=== PATIENT | female | born 1955 | race Caucasian/White ===

== ENCOUNTER 2016-09-15 11:11 | Emergency (ER) | payer BC, OTHER ==
[~2016-09-15] VITALS: Ht 152.4 cm; Wt 77.8 kg
[~2016-09-15 11:11] MED LIST: ALBU18002 INH; CETI10TA84 PO; ESOM1CAP24 PO; LEVO100T PO; MOME100A INH
[2016-09-15 11:18] VITALS: Ht 152.4 cm; Wt 77.8 kg
--- NOTE | 2016-09-15 12:06 | EMERGENCY ROOM VISIT NOTE ---
History Report prepared by Shannan: Neeru Tony Under the Supervision of: Dr. Ugo Connell M.D. First contact with patient: 11:46 Chief Complaint: CHEST PAIN Stated Complaint: CP, NUMBNESS IN LT ARM Nursing Triage Summary: Right knee pain x7 weeks "issues with right calf and pulling sensation in foot" Pt 4 days ago right knee swelled up "I have been tracking this sensation that there is something moving up my leg, then I felt something slipping in my groin then I felt something in my chest. I have been wondering for a while if there is a chance I have a blood clot" History of Present Illness The patient is a 60 year old female who presents to the Emergency Room with complaints of persistent chest pain that began today prior to arrival. She currently rates her discomfort as a 7/10 in severity. The patient states that today she developed left arm numbness, chest pain, and pain with breathing today. The patient notes a history of varicose veins, stating that she has had intermittent right knee, foot, and groin pain. She states that she has had difficulty walking due to her pain. The patient states that she has been worried about a blood clot. She additionally notes increased edema to her right knee. The patient states that her pain has been radiating up to her right groin. Yesterday, the patient states that she noticed slight neck pain. The patient denies any history of a blood clot. She notes that her last stress test was 5 years ago. Source of History: patient, spouse/significant other Onset: prior to arrival Position: chest Symptom Intensity: 7/10 Timing: other (persistent) Associated Symptoms: + neck pain Note: Associated Symptoms: right knee pain and swelling, chest pain with breathing Review of Systems See HPI for pertinent positives & negatives. A total of 10 systems reviewed and were otherwise negative. Past Medical & Surgical Medical Problems: (1) Allergic Rhinitis Nos (2) Asthma, Unspecified (3) Ext Hemorrhoid W/O Compl (4) Hypothyroidism Nos (5) Tinnitus (6) TMJ (temporomandibular joint disorder) Surgical Problems: (1) History of delivery Old medical records were reviewed. Nurse's notes were reviewed and I agree with. Family History FH: diabetes mellitus FH: hypertension FH: lung disease Social History Smoking Status: Never Smoker Alcohol Use: occasionally Marital Status: Housing Status: lives with family Occupation Status: employed Current/Historical Medications Scheduled Cetirizine (Zyrtec), 10 MG PO QAM Esomeprazole Magnesium (Nexium 24Hr), 40 MG PO QD Levothyroxine Sodium (Synthroid), 100 MCG PO DAILY Scheduled PRN Albuterol Sulfate (Proair Respiclick), 1 PUFF INH BID PRN for SOB/Wheezing Allergies Coded Allergies: Erythromycin (Unverified Allergy, Unknown, UNKNOWN, 09/15/16) Macrolides (Verified Allergy, Unknown, 09/15/16) Penicillins (Unverified Allergy, Unknown, Pt had Keflex in past without problem, 09/15/16) Sulfa Drugs (Verified Allergy, Unknown, 09/15/16) Physical Exam Vital Signs Date Time Temp Pulse Resp B/P Pulse Ox O2 Delivery O2 Flow Rate FiO2 09/15/16 16:50 36.6 68 18 141/99 98 09/15/16 16:48 68 18 141/99 98 Room Air 09/15/16 14:42 68 18 145/102 98 Room Air 09/15/16 12:43 68 18 153/92 96 Room Air 09/15/16 11:57 72 09/15/16 11:18 36.6 76 18 169/112 96 Room Air Physical Exam General: Well developed well nourished, non-ill appearing middle aged female, in no acute distress, breathing comfortably on room air. Normal speech HEENT: Normal cephalic atraumatic. Pupils are equal round and reactive to light. Extraocular movements are intact. Oropharynx is pink with moist mucous membranes. No swelling of the mouth lips or tongue. Neck: Supple with a midline trachea. No meningeal signs or stiffness, no JVD or bruits. No Stridor. Chest: Clear to auscultation bilaterally. No wheezes or rhonchi. No increased work of breathing. Heart: regular rate and rhythm. Abdomen: Soft nontender, nondistended without rebound guarding or rigidity. Extremities: The right leg has no redness, warmth, or significant swelling, no masses. No cyanosis clubbing or edema. No calf tenderness or assymetry Spine/Back. Non tender to palpation. No CVA tenderness Skin: Good turgor without rashes. Neurologic exam: Cranial nerves two through 12 are intact. Motor and sensation are intact and symmetrical throughout. Medical Decision & Procedures ER Provider Diagnostic Interpretation: Radiology results as stated below per my review and radiologist interpretation: CHEST ONE VIEW PORTABLE CLINICAL HISTORY: Atypical chest pain COMPARISON STUDY: 05/28/2014 FINDINGS: The cardiac and mediastinal contours are normal. There is no evidence of focal pulmonary consolidation. There is no evidence of failure. No pleural effusions are visualized.[ IMPRESSION: No active disease in the chest. Electronically signed by: Javy Maier M.D. 09/15/2016 12:29 PM Dictated Date/Time: 09/15/2016 12:28 PM ULTRASOUND RIGHT LOWER EXTREMITY VENOUS CLINICAL HISTORY: Right leg pain and swelling. COMPARISON STUDY: No priors. TECHNIQUE: Real-time, grayscale, and color Doppler sonography of the deep veins of the right lower extremity was performed from the inguinal crease to the calf. Compression and augmentation were utilized. FINDINGS: There is no sonographic evidence of deep venous thrombosis identified in the right lower extremity. The common femoral, superficial femoral, and popliteal veins are patent and normally compressible. The greater saphenous vein and the profunda femoris vein at the junction with the common femoral vein are clear. The visualized calf veins are patent. IMPRESSION: There is no sonographic evidence of deep venous thrombosis identified in the right lower extremity. Electronically signed by: Rehan Dillon M.D. 09/15/2016 1:42 PM Dictated Date/Time: 09/15/2016 1:42 PM RIGHT KNEE 2 VIEWS CLINICAL HISTORY: Right knee pain. FINDINGS: AP and crosstable lateral views of the right knee are obtained. No prior studies are available for comparison at the time of dictation. The skeletal structures are well mineralized. No fracture is seen. There is mild degenerative narrowing at the medial and patellofemoral articulations. There are small marginal osteophytes as well as mild degenerative beaking of the tibial spine. No joint effusion is seen. The overlying soft tissues are within normal limits. IMPRESSION: Minimal degenerative change as above. No acute bony abnormality is seen. Electronically signed by: Rehan Dillon M.D. 09/15/2016 12:31 PM Dictated Date/Time: 09/15/2016 12:[address] ANGIOGRAM OF THE CHEST CLINICAL HISTORY: Atypical chest pain. COMPARISON STUDY: Chest x-ray dated 09/15/2016. TECHNIQUE: Following the IV administration of 93 cc of Optiray 320, CT angiogram of the chest was performed from the upper abdomen to the thoracic inlet utilizing the pulmonary embolus protocol. Images are reviewed in the axial, sagittal, and coronal planes. 3-D MIPS images are created and assessed. IV contrast was administered without complication. CT DOSE: 356.33 mGy.cm FINDINGS: Thyroid: The thyroid gland is atrophic. Coarse calcifications are noted in the right lobe. Thoracic aorta: The thoracic aorta is normal in caliber and demonstrates standard 3-vessel arch anatomy. No dissection is seen. Pulmonary vasculature: The pulmonary trunk is normal in caliber. There are no filling defects identified in main, lobar, or segmental pulmonary branches to suggest pulmonary embolus. Heart: The heart is normal in size and configuration, and without pericardial effusion. Lungs and pleural spaces: The lungs and pleural spaces are clear. Mediastinum: There is no mediastinal lymphadenopathy. Clara: Clear. Axillae: There is no axillary lymphadenopathy. Upper abdomen: A 9 cm cyst is identified in the upper pole of the left kidney. A tiny hiatal hernia is observed. Skeletal structures: The skeletal structures are osteopenic. Mild degenerative change is noted throughout the thoracic spine. No lytic or blastic bony lesions are seen. IMPRESSION: 1. There is no evidence of pulmonary embolus in the main, lobar, or segmental pulmonary arteries. 2. The lungs are clear. Electronically signed by: Rehan Dillon M.D. 09/15/2016 4:23 PM Dictated Date/Time: 09/15/2016 4:09 PM Laboratory Results 09/15/16 11:30 Red Blood Count 5.15, Mean Corpuscular Volume 87.0, Mean Corpuscular Hemoglobin 28.7, Mean Corpuscular Hemoglobin Concent 33.0, Mean Platelet Volume 11.5, Neutrophils (%) (Auto) 66.0, Lymphocytes (%) (Auto) 22.4, Monocytes (%) (Auto) 7.5, Eosinophils (%) (Auto) 3.4, Basophils (%) (Auto) 0.5, Neutrophils # (Auto) 4.08, Lymphocytes # (Auto) 1.38, Monocytes # (Auto) 0.46, Eosinophils # (Auto) 0.21, Basophils # (Auto) 0.03 09/15/16 11:30 Test 09/15/16 11:30 09/15/16 11:57 09/15/16 12:05 White Blood Count 6.17 K/uL (4.8-10.8) Red Blood Count 5.15 M/uL (4.2-5.4) Hemoglobin 14.8 g/dL (12.0-16.0) Hematocrit 44.8 % (37-47) Mean Corpuscular Volume 87.0 fL (80-100) Mean Corpuscular Hemoglobin 28.7 pg (25-34) Mean Corpuscular Hemoglobin Concent 33.0 g/dl (32-36) Platelet Count 213 K/uL (130-400) Mean Platelet Volume 11.5 fL (7.4-10.4) Neutrophils (%) (Auto) 66.0 % Lymphocytes (%) (Auto) 22.4 % Monocytes (%) (Auto) 7.5 % Eosinophils (%) (Auto) 3.4 % Basophils (%) (Auto) 0.5 % Neutrophils # (Auto) 4.08 K/uL (1.4-6.5) Lymphocytes # (Auto) 1.38 K/uL (1.2-3.4) Monocytes # (Auto) 0.46 K/uL (0.11-0.59) Eosinophils # (Auto) 0.21 K/uL (0-0.5) Basophils # (Auto) 0.03 K/uL (0-0.2) RDW Standard Deviation 39.3 fL (36.4-46.3) RDW Coefficient of Variation 12.3 % (11.5-14.5) Immature Granulocyte % (Auto) 0.2 % Immature Granulocyte # (Auto) 0.01 K/uL (0.00-0.02) Anion Gap 8.0 mmol/L (3-11) Est Creatinine Clear Calc Drug Dose 58.9 ml/min Estimated GFR () 75.6 Estimated GFR (Non- 65.2 BUN/Creatinine Ratio 19.9 (10-20) Calcium Level 8.9 mg/dl (8.5-10.1) Total Bilirubin 0.5 mg/dl (0.2-1) Direct Bilirubin 0.1 mg/dl (0-0.2) Aspartate Amino Transf (AST/SGOT) 17 U/L (15-37) Alanine Aminotransferase (ALT/SGPT) 20 U/L (12-78) Alkaline Phosphatase 78 U/L (45-117) Total Creatine Kinase 27 U/L (26-192) Creatine Kinase MB 0.7 ng/ml (0.5-3.6) Total Protein 7.9 gm/dl (6.4-8.2) Albumin 4.0 gm/dl (3.4-5.0) Lipase 132 U/L (73-393) Creatine Kinase MB Ratio (0-3.0) Bedside D-Dimer > 450 ng/mlFEU (0-450) Bedside Troponin I 0.030 ng/ml (0-0.045) Laboratory studies as stated above per my review. ECG Indication: chest pain Rate (beats per minute): 78 Rhythm: normal sinus Findings: no acute ischemic change, no ectopy Comparison ECG Date: 06/07/13 Change: no significant change ED Course 1148: Past medical records reviewed. The patient was evaluated in room A11B, and a complete history and physical examination were performed. 1518: I reevaluated the patient and she is resting comfortably. She is going to have a CT scan. 1619: I reevaluated the patient and she is resting comfortably. I discussed all the exam findings with her and I discussed the treatment plan. She verbalized complete understanding and agreement. She is ready to go home. Medical Decision Differentials include, but are not limited to; PE, acute coronary syndrome, arrhythmia, DVT, infection, electrolyte or metabolic abnormality. This patient comes in as described above. She was placed in room A 11. She is here for treatment and evaluation of right knee pain. She also had a brief episode of chest pain twice that lasted only a second or 2. Her symptoms are were would be atypical for cardiac disease or PE. IV access was established EKG and multiple blood testing was obtained. Chest x-ray and knee x-ray were obtained as well. She has nothing to suggest acute coronary syndrome or arrhythmia. She's had no significant electrolyte or metabolic abnormalities. Ultrasound of her right leg was unremarkable. She has no evidence of DVT. Her d-dimer was elevated and in light of this, I did do a chest CT and there is no evidence of PE. There is an incidental finding of a left renal cyst that is partially imaged. I told the patient she should follow up with her regular doctor for this. She's remained stable looks well. I do not think is likely a cardiac event. I do think she should have close follow-up with her doctor and in fact has an appointment scheduled tomorrow. She should return if: increasing pain, worsening of symptoms, fever or chills, any new problems or concerns. Impression Primary Impression: Precordial chest pain Additional Impressions: Right knee pain Renal cyst, left Scribe Attestation The scribe's documentation has been prepared under my direction and personally reviewed by me in its entirety. I confirm that the note above accurately reflects all work, treatment, procedures, and medical decision making performed by me. Departure Information Dispostion Home / Self-Care Referrals Giovani Orozco M.D. (PCP) Forms HOME CARE DOCUMENTATION FORM, IMPORTANT VISIT INFORMATION Patient Instructions [facility] Additional Instructions Rest Drink plenty of fluids Return if: worsening of symptoms, increasing pain, shortness of breath, any new problems or concerns Follow-up with your doctor in 1-2 days for recheck Problem Qualifiers
[2016-09-15 12:11] LABS: BASO % 0.5 %; BASO ABS # 0.03 K/uL (0-0.2); COMPLETE YES; EOS % 3.4 %; HEMATOCRIT 44.8 % (37-47); IG% 0.2 %; LYMPH % 22.4 %; LYMPH ABS # 1.38 K/uL (1.2-3.4); MEAN CORPUSCULAR HEMOGLOBIN 28.7 pg (25-34); MEAN PLATELET VOLUME 11.5 fL (7.4-10.4); MONO % 7.5 %; PLATELET COUNT 213 K/uL (130-400); RED BLOOD COUNT 5.15 M/uL (4.2-5.4); WHITE BLOOD COUNT 6.17 K/uL (4.8-10.8)
[2016-09-15 12:22] LABS: BUN/CREATININE RATIO 19.9 (10-20); CALCIUM 8.9 mg/dl (8.5-10.1); CREATININE 0.96 mg/dl (0.60-1.20); POTASSIUM 3.8 mmol/L (3.5-5.1)
[2016-09-15 12:27] LABS: CKMB/CK RATIO 2.6 (0-3.0)
--- NOTE | 2016-09-15 12:31 | DIAGNOSTIC IMAGING REPORT ---
CHEST ONE VIEW PORTABLE CLINICAL HISTORY: Atypical chest pain COMPARISON STUDY: 05/28/2014 FINDINGS: The cardiac and mediastinal contours are normal. There is no evidence of focal pulmonary consolidation. There is no evidence of failure. No pleural effusions are visualized.[ IMPRESSION: No active disease in the chest. Electronically signed by: Javy Maier M.D. 09/15/2016 12:29 PM Dictated Date/Time: 09/15/2016 12:28 PM
--- NOTE | 2016-09-15 12:33 | DIAGNOSTIC IMAGING REPORT ---
RIGHT KNEE 2 VIEWS CLINICAL HISTORY: Right knee pain. FINDINGS: AP and crosstable lateral views of the right knee are obtained. No prior studies are available for comparison at the time of dictation. The skeletal structures are well mineralized. No fracture is seen. There is mild degenerative narrowing at the medial and patellofemoral articulations. There are small marginal osteophytes as well as mild degenerative beaking of the tibial spine. No joint effusion is seen. The overlying soft tissues are within normal limits. IMPRESSION: Minimal degenerative change as above. No acute bony abnormality is seen. Electronically signed by: Rehan Dillon M.D. 09/15/2016 12:31 PM Dictated Date/Time: 09/15/2016 12:30 PM
--- NOTE | 2016-09-15 13:44 | DIAGNOSTIC IMAGING REPORT ---
ULTRASOUND RIGHT LOWER EXTREMITY VENOUS CLINICAL HISTORY: Right leg pain and swelling. COMPARISON STUDY: No priors. TECHNIQUE: Real-time, grayscale, and color Doppler sonography of the deep veins of the right lower extremity was performed from the inguinal crease to the calf. Compression and augmentation were utilized. FINDINGS: There is no sonographic evidence of deep venous thrombosis identified in the right lower extremity. The common femoral, superficial femoral, and popliteal veins are patent and normally compressible. The greater saphenous vein and the profunda femoris vein at the junction with the common femoral vein are clear. The visualized calf veins are patent. IMPRESSION: There is no sonographic evidence of deep venous thrombosis identified in the right lower extremity. Electronically signed by: Rehan Dillon M.D. 09/15/2016 1:42 PM Dictated Date/Time: 09/15/2016 1:42 PM
[2016-09-15] MEDS ORDERED: OPTIRAY 320 IV PRN (15:30)
--- NOTE | 2016-09-15 16:25 | DIAGNOSTIC IMAGING REPORT ---
CT ANGIOGRAM OF THE CHEST CLINICAL HISTORY: Atypical chest pain. COMPARISON STUDY: Chest x-ray dated 09/15/2016. TECHNIQUE: Following the IV administration of 93 cc of Optiray 320, CT angiogram of the chest was performed from the upper abdomen to the thoracic inlet utilizing the pulmonary embolus protocol. Images are reviewed in the axial, sagittal, and coronal planes. 3-D MIPS images are created and assessed. IV contrast was administered without complication. CT DOSE: 356.33 mGy.cm FINDINGS: Thyroid: The thyroid gland is atrophic. Coarse calcifications are noted in the right lobe. Thoracic aorta: The thoracic aorta is normal in caliber and demonstrates standard 3-vessel arch anatomy. No dissection is seen. Pulmonary vasculature: The pulmonary trunk is normal in caliber. There are no filling defects identified in main, lobar, or segmental pulmonary branches to suggest pulmonary embolus. Heart: The heart is normal in size and configuration, and without pericardial effusion. Lungs and pleural spaces: The lungs and pleural spaces are clear. Mediastinum: There is no mediastinal lymphadenopathy. Clara: Clear. Axillae: There is no axillary lymphadenopathy. Upper abdomen: A 9 cm cyst is identified in the upper pole of the left kidney. A tiny hiatal hernia is observed. Skeletal structures: The skeletal structures are osteopenic. Mild degenerative change is noted throughout the thoracic spine. No lytic or blastic bony lesions are seen. IMPRESSION: 1. There is no evidence of pulmonary embolus in the main, lobar, or segmental pulmonary arteries. 2. The lungs are clear. Electronically signed by: Rehan Dillon M.D. 09/15/2016 4:23 PM Dictated Date/Time: 09/15/2016 4:09 PM
[2016-09-15 16:50] VITALS: BP 141/99; PULSE 68; TEMP 36.6; O2SAT 98
== END 2016-09-15 16:54 | disposition home or self-care (01) ==
LOC: C.EDB 11:13 → C.EDA 16:54
DX: R07.2 Precordial pain (principal); M25.561 Pain in right knee; N28.1 Cyst of kidney, acquired; J45.909 Unspecified asthma, uncomplicated; E03.9 Hypothyroidism, unspecified; Z83.3 Family history of diabetes mellitus; Z82.49 Family history of ischemic heart disease and other diseases of the circulatory system; Z79.899 Other long term (current) drug therapy

== ENCOUNTER → 2016-12-13 | Outpatient (CLI) | payer BC ==
[~2016-12-13] MED LIST changes: -MOME100A INH; +OPTIRAY 320 IV PRN
--- NOTE | 2016-12-13 16:47 | DIAGNOSTIC IMAGING REPORT ---
CT OF THE ABDOMEN WITH AND WITHOUT CONTRAST RENAL PROTOCOL CLINICAL HISTORY: Left renal cyst. COMPARISON STUDY: Chest CT September 15, 2016. TECHNIQUE: Unenhanced, nephrographic and 5 minute delayed phase imaging of the abdomen was performed. Injection of 119 cc Optiray 320 IV was uneventful. FINDINGS: Note is made of an 8.8 cm water attenuation lesion which arises from the upper pole of the left kidney. This corresponds to the lesion shown on chest CT of September 15, 2016. This has no solid component. This is consistent with a cyst. In addition, note is made of a 3.2 cm water attenuation lesion within the upper aspect of the right renal pelvis consistent with a cyst. No solid renal lesion is present. There is no hydronephrosis. No upper tract urothelial lesions are identified. There is a gallstone within the gallbladder. The liver, spleen, adrenal glands and pancreas are normal. There is no abdominal lymphadenopathy. Caliber and wall thickness of visualized small and large bowel are normal. IMPRESSION: 1. 8.8 cm left renal cyst. No solid component. 2. 3.2 cm right renal cyst. 3. Cholelithiasis. Electronically signed by: Yuriy Carias M.D. 12/13/2016 4:46 PM Dictated Date/Time: 12/13/2016 4:31 PM
== END | disposition home or self-care (01) ==
LOC: C.CTS 16:01
PROVIDERS: ATTEND Urology
DX: N28.1 Cyst of kidney, acquired (principal); K80.20 Calculus of gallbladder without cholecystitis without obstruction

== ENCOUNTER → 2017-03-28 | Outpatient (CLI) | payer BC ==
[~2017-03-28] MED LIST changes: -OPTIRAY 320 IV PRN
--- NOTE | 2017-03-28 13:01 | DIAGNOSTIC IMAGING REPORT ---
(BARIUM SWALLOW) ESOPHAGUS CLINICAL HISTORY: 61 years-old Female with R13.10 [id number] Lump in [id number]. Chronic dysphasia TECHNIQUE: Barium contrast and effervescent crystals were administered to the patient under fluoroscopic examination. Multiple images were obtained and submitted for review. FLUOROSCOPY TIME: 1.6 minutes COMPARISON: CT 12/13/2016. FINDINGS: During deglutition, contrast material flowed freely through the cervical esophagus. No filling defect or mucosal abnormality is identified. No abnormal stricturing or mass effect is seen. The mid to distal esophagus is well coated and distended. No abnormal stricturing or mucosal abnormality is identified. No large hiatal hernia was demonstrated during the exam. The GE junction is normal in appearance. Extensive gastroesophageal reflux was noted extending to level the lower cervical esophagus. Mild tertiary contractions of the distal esophagus noted. Impression: 1. Extensive gastroesophageal reflux extends to the level of the lower cervical esophagus. 2. Mild esophageal dysmotility with some tertiary contractions of the distal esophagus. The above report was generated using voice recognition software. It may contain grammatical, syntax or spelling errors. Electronically signed by: Ryan Bill M.D. 03/28/2017 10:45 AM Dictated Date/Time: 03/28/2017 10:42 AM
== END | disposition home or self-care (01) ==
LOC: C.RAD 10:03
PROVIDERS: ATTEND Neuromusculoskeletal Medicine & OMM
DX: R22.1 Localized swelling, mass and lump, neck (principal); R13.10 Dysphagia, unspecified; K21.9 Gastro-esophageal reflux disease without esophagitis

== ENCOUNTER → 2017-04-28 | Outpatient (CLI) | payer BC | END | disposition home or self-care (01) | LOC: C.PAPS 09:27 | PROVIDERS: ATTEND Nurse Practitioner Adult Health | DX: Z00.00 Encounter for general adult medical examination without abnormal findings (principal); Z01.419 Encounter for gynecological examination (general) (routine) without abnormal findings ==

== ENCOUNTER → 2017-04-29 | Outpatient (CLI) | payer BC ==
[2017-04-29 13:32] LABS: BASO % 0.5 %; BASO ABS # 0.03 K/uL (0-0.2); COMPLETE YES; EOS % 5.3 %; HEMATOCRIT 40.9 % (37-47); IG% 0.2 %; LYMPH % 25.3 %; LYMPH ABS # 1.43 K/uL (1.2-3.4); MEAN CELL VOLUME 87.6 fL (80-100); MEAN CORPUSCULAR HEMOGLOBIN 30.2 pg (25-34); MEAN CORPUSCULAR HGB CONC 34.5 g/dl (32-36); MEAN PLATELET VOLUME 11.9 fL (7.4-10.4); MONO % 7.6 %; NEUT % 61.1 %; PLATELET COUNT 203 K/uL (130-400); RED BLOOD COUNT 4.67 M/uL (4.2-5.4); WHITE BLOOD COUNT 5.66 K/uL (4.8-10.8)
[2017-04-29 14:04] LABS: ALT/SGPT 23 U/L (12-78); AST/SGOT 16 U/L (15-37); BLOOD UREA NITROGEN 24 mg/dl (7-18); BUN/CREATININE RATIO 21.6 (10-20); CALCIUM 8.7 mg/dl (8.5-10.1); CARBON DIOXIDE 25 mmol/L (21-32); CHLORIDE 108 mmol/L (98-107); CREATININE 1.12 mg/dl (0.60-1.20); GLUCOSE 84 mg/dl (70-99); SODIUM 140 mmol/L (136-145)
[2017-04-29 14:15] LABS: ALB/GLOB RATIO 1.1 (0.9-2); ALKALINE PHOSPHATASE 71 U/L (45-117); CHOLESTEROL 194 mg/dl (0-200); CHOLESTEROL/HDL RATIO 2.9; HDL CHOLESTEROL 67 mg/dl; LDL CHOLESTEROL CALCULATED 102 mg/dl; THYROID STIMULATING HORMONE 0.854 uIu/ml (0.300-4.500); TRIGLYCERIDES 127 mg/dl (0-150); VERY LOW DENSITY LIPOPROT CALC 25 mg/dl
[2017-04-30 06:47] LABS: ESTIMATED AVERAGE GLUCOSE 108 mg/dl; HA1C FLAG Normal (Normal)
== END | disposition home or self-care (01) ==
LOC: C.LABBC 11:42
PROVIDERS: ATTEND Family Medicine
DX: Z00.00 Encounter for general adult medical examination without abnormal findings (principal); Z11.59 Encounter for screening for other viral diseases; E03.9 Hypothyroidism, unspecified; E78.5 Hyperlipidemia, unspecified

== ENCOUNTER → 2017-05-10 | Outpatient (CLI) | payer BC ==
--- NOTE | 2017-05-11 15:59 | MAMMOGRAPHY REPORT ---
BILATERAL DIGITAL SCREENING MAMMOGRAM TOMOSYNTHESIS WITH CAD: 05/10/2017 CLINICAL HISTORY: Routine screening. TECHNIQUE: Breast tomosynthesis in addition to standard 2D mammography was performed. Current study was also evaluated with a Computer Aided Detection (CAD) system. COMPARISON: Comparison is made to exam dated: 10/24/2002 mammogram. BREAST COMPOSITION: There are scattered areas of fibroglandular density in both breasts. Involution al changes comparing to the prior available 2002 mammograms. FINDINGS: No suspicious mass, architectural distortion or cluster of suspicious microcalcifications is seen. IMPRESSION: ACR BI-RADS CATEGORY 1: NEGATIVE There is no mammographic evidence of malignancy. A 1 year screening mammogram is recommended. The pa tient will receive written notification of the results. Approximately 10% of breast cancers are not detected with mammography. A negative mammographic report should not delay biopsy if a clinically suggestive mass is present. Kathy Hou M.D. ay/:05/10/2017 15:12:01 [employer] Director: Megan Fraser, [facility] letter sent: Normal 1/2 BI-RADS Code: ACR BI-RADS Category 1: Negative
== END | disposition home or self-care (01) ==
LOC: C.MAMM 14:38
PROVIDERS: ATTEND Physician Assistant Medical
DX: Z12.31 Encounter for screening mammogram for malignant neoplasm of breast (principal)

== ENCOUNTER → 2017-08-04 | Outpatient (CLI) | payer BC | END | disposition home or self-care (01) | LOC: C.LABSPEC 17:45 | PROVIDERS: ATTEND Nurse Practitioner Family | DX: R39.9 Unspecified symptoms and signs involving the genitourinary system (principal) ==

== ENCOUNTER → 2017-12-21 | Outpatient (CLI) | payer BC ==
[~2017-12-21] MED LIST changes: +ADVIN50/60 INH; +CALC500C3 PO; -ESOM1CAP24 PO; +IBUP-103 PO; +PANT40TA PO
--- NOTE | 2017-12-21 09:17 | DIAGNOSTIC IMAGING REPORT ---
CHEST 2 VIEWS ROUTINE CLINICAL HISTORY: Preoperative chest COMPARISON STUDY: 09/15/2016 FINDINGS: The cardiac and mediastinal contours are normal. There is no evidence of focal pulmonary consolidation. There is no evidence of failure. No pleural effusions are visualized.[ IMPRESSION: No active disease in the chest. Electronically signed by: Javy Maier M.D. 12/21/2017 9:16 AM Dictated Date/Time: 12/21/2017 9:15 AM
[2017-12-21 09:31] LABS: BASO % 0.5 %; BASO ABS # 0.03 K/uL (0-0.2); EOS ABS # 0.17 K/uL (0-0.5); HEMOGLOBIN 14.2 g/dL (12.0-16.0); IG# 0.01 K/uL (0.00-0.02); LYMPH % 21.1 %; LYMPH ABS # 1.21 K/uL (1.2-3.4); MEAN CELL VOLUME 88.1 fL (80-100); MEAN CORPUSCULAR HEMOGLOBIN 29.8 pg (25-34); MEAN CORPUSCULAR HGB CONC 33.8 g/dl (32-36); MEAN PLATELET VOLUME 11.6 fL (7.4-10.4); MONO % 7.8 %; MONO ABS # 0.45 K/uL (0.11-0.59); NEUT % 67.4 %; NEUT ABS # 3.87 K/uL (1.4-6.5); PLATELET COUNT 182 K/uL (130-400); RED CELL DISTRIBUTION WIDTH CV 12.5 % (11.5-14.5); RED CELL DISTRIBUTION WIDTH SD 39.9 fL (36.4-46.3); WHITE BLOOD COUNT 5.74 K/uL (4.8-10.8)
[2017-12-21 13:45] LABS: BLOOD UREA NITROGEN 22 mg/dl (7-18); CALCIUM 8.6 mg/dl (8.5-10.1); CARBON DIOXIDE 26 mmol/L (21-32); CREATININE 1.12 mg/dl (0.60-1.20); GLUCOSE 93 mg/dl (70-99); POTASSIUM 4.1 mmol/L (3.5-5.1); SODIUM 139 mmol/L (136-145)
== END | disposition home or self-care (01) ==
LOC: C.CPL 08:06
PROVIDERS: ATTEND Urology
DX: Z01.810 Encounter for preprocedural cardiovascular examination (principal); Z01.811 Encounter for preprocedural respiratory examination; Z01.812 Encounter for preprocedural laboratory examination

== ENCOUNTER 2018-01-03 08:33 | Inpatient (IN) | payer BC ==
[2017-12-19 08:01] VITALS: BMI 34.0
--- NOTE | 2017-12-20 16:09 | PAT Medication Instructions ---
Service Date Dec 20, 2017. Current Home Medication List Albuterol Sulfate (Proair Respiclick), 1 PUFF INH BID PRN for SOB/Wheezing Calcium Carbonate (Tums), 1 DOSE PO QD PRN for Heartburn Cetirizine (Zyrtec), 10 MG PO QAM Fluticasone Prop/Salmeterol (Advair Diskus 500/50 60 Dose), 1 PUFFS INH BID PRN for SOB/Wheezing Ibuprofen Tab (Advil), 400 MG PO QD PRN for Pain Levothyroxine Sodium (Synthroid), 100 MCG PO QAM Pantoprazole (Protonix), 40 MG PO QAM Medication Instructions For Your Scheduled Surgery - Check with surgeon for instructions: Ibuprofen Tab (Advil), 400 MG PO QD PRN for Pain - Hold the following medications the morning of surgery: Calcium Carbonate (Tums), 1 DOSE PO QD PRN for Heartburn Cetirizine (Zyrtec), 10 MG PO QAM - Take the following medications the morning of surgery with a sip of water: Albuterol Sulfate (Proair Respiclick), 1 PUFF INH BID PRN for SOB/Wheezing (if needed) Fluticasone Prop/Salmeterol (Advair Diskus 500/50 60 Dose), 1 PUFFS INH BID PRN for SOB/Wheezing (if needed) Levothyroxine Sodium (Synthroid), 100 MCG PO QAM Pantoprazole (Protonix), 40 MG PO QAM - Take the following medications as scheduled the night before surgery: Calcium Carbonate (Tums), 1 DOSE PO QD PRN for Heartburn (if needed) Fluticasone Prop/Salmeterol (Advair Diskus 500/50 60 Dose), 1 PUFFS INH BID PRN for SOB/Wheezing (if needed) Albuterol Sulfate (Proair Respiclick), 1 PUFF INH BID PRN for SOB/Wheezing (if needed) If you have any questions please call us at [phone] or [phone] or [phone]
[2017-12-21 08:12] VITALS: Ht 149.9 cm; Wt 79.1 kg
[~2018-01-03] VITALS: Ht 149.9 cm; Wt 79.1 kg
[2018-01-03] VITALS (9 sets, daily range): BP systolic 101–143; BP diastolic 63–86; PULSE 53–90; TEMP 36.4–36.8; O2SAT 95–100
[~2018-01-03 08:33] MED LIST changes: +CEFAZOLIN 2000MG IV PUSH 15 ML IV SCH; +LACTATED RINGER'S 1000ML 1,000 ML IV SCH
[2018-01-03] MEDS ORDERED: PHENYLEPHRINE 100MCG/ML 5ML SYR IV PRN (09:15)
[2018-01-03] MEDS ORDERED: ONDANSETRON INJ 2 MG/ML 2 ML VIAL IV PRN ×2 (09:15→12:00)
[2018-01-03] MEDS ORDERED: ATROPINE SULFATE 0.1 MG/ML 5ML SYR IV PRN (09:15)
[2018-01-03] MEDS ORDERED: HYDROmorphone INJ 2 MG/ML SYR/VIAL IV PRN (09:15)
[2018-01-03] MEDS ORDERED: EpHEDrine SULFATE INJ 50 MG/ML AMP IV PRN (09:15)
--- NOTE | 2018-01-03 10:04 | History & Physical Bridge Note ---
H&P Re-Evaluation Bridge Note: I have examined the patient, reviewed the History & Physical and in the interval since the performance of the History & Physical I have noted the following changes of clinical significance: No changes noted
[2018-01-03] MEDS ORDERED: BUPIVACAINE 0.5 % 5 MG/1 ML PF 10ML VIAL ONE (10:22)
[2018-01-03] MEDS ORDERED: PROPOFOL IV EMULSION 10 MG/ML 20 ML VIAL ONE (10:33)
[2018-01-03] MEDS ORDERED: LIDOCAINE HCL 2% 2 ML VIAL (20MG/ML) ONE (10:33)
[2018-01-03] MEDS ORDERED: ROCURONIUM BROMIDE 10 MG/ML 5 ML VIAL ONE (10:33)
[2018-01-03] MEDS ORDERED: FENTANYL CITRATE INJ 50 MCG/1 ML 2 ML VIAL ONE (10:34)
[2018-01-03] MEDS ORDERED: MIDAZOLAM HCL 1 MG/ML 2ML VIAL ONE (10:34)
[2018-01-03] MEDS ORDERED: ONDANSETRON INJ 2 MG/ML 2 ML VIAL ONE (11:33)
[2018-01-03] MEDS ORDERED: DEXAMETHASONE SOD INJ 4 MG/ML VIAL ONE (11:33)
[2018-01-03] MEDS ORDERED: GLYCOPYRROLATE INJ 0.2 MG/ML VIAL ONE (11:46)
[2018-01-03] MEDS ORDERED: NEOSTIGMINE METHYLSULFATE 5 MG/5 ML SYR ONE (11:46)
[2018-01-03] MEDS ORDERED: ACETAMINOPHEN/CODEINE 300/30MG TAB PO PRN (12:00)
[2018-01-03] MEDS ORDERED: CALCIUM CARBONATE 500 MG CHEWABLE PO PRN (12:00)
[2018-01-03] MEDS ORDERED: FLUTICASONE/SALMETEROL (ADVAIR) 500/50 INH 14 PUFF INH PRN (12:00)
[2018-01-03] MEDS ORDERED: ALBUTEROL HFA INHALER 8.5 GM INH PRN (12:00)
[2018-01-03] MEDS ORDERED: MoRPHine SULFATE 4 MG/ML 1 ML CARP\\VIAL IV PRN (12:00)
[2018-01-03] MEDS ORDERED: ACETAMINOPHEN 325 MG TAB PO PRN (12:00)
--- NOTE | 2018-01-03 12:08 | [facility] Post Operative Brief Note ---
Immediate Operative Summary Operative Date Jan 03, 2018. Pre-Operative Diagnosis Left renal cyst Post-Operative Diagnosis Left renal cyst Procedure(s) Performed Left laparoscopic renal cyst decortication Surgeon Dr. Oliver Hou MD Record Clerk Surgeon(s) MAIK Esquivel Estimated Blood Loss 5ml Findings Consistent with Post-Op Diagnosis Specimens A. Left renal cyst Anesthesia Type General Complication(s) none Disposition Accompanied Pt To Recover: yes Disposition: Recovery Room / PACU
[2018-01-03] MEDS ORDERED: HYDROmorphone INJ 1 MG/ML SYR ONE (12:17)
[2018-01-03 12:39] LABS: BASO % 0.5 %; BASO ABS # 0.03 K/uL (0-0.2); EOS ABS # 0.12 K/uL (0-0.5); HEMATOCRIT 42.9 % (37-47); HEMOGLOBIN 14.3 g/dL (12.0-16.0); IG# 0.01 K/uL (0.00-0.02); LYMPH % 24.5 %; LYMPH ABS # 1.45 K/uL (1.2-3.4); MEAN CELL VOLUME 89.4 fL (80-100); MEAN CORPUSCULAR HEMOGLOBIN 29.8 pg (25-34); MEAN PLATELET VOLUME 11.6 fL (7.4-10.4); MONO % 5.4 %; MONO ABS # 0.32 K/uL (0.11-0.59); NEUT % 67.4 %; PLATELET COUNT 172 K/uL (130-400); RED CELL DISTRIBUTION WIDTH CV 12.6 % (11.5-14.5); RED CELL DISTRIBUTION WIDTH SD 40.8 fL (36.4-46.3); WHITE BLOOD COUNT 5.93 K/uL (4.8-10.8)
[2018-01-03 12:44] LABS: MEAN CORPUSCULAR HGB CONC 33.3 g/dl (32-36)
[2018-01-03] MEDS ORDERED: NURSING VERBAL MED ORDER ONE (13:00)
[2018-01-03] MEDS ORDERED: ALBUT/IPRATROP 3MG/0.5MG NEB 3 ML VIAL INH ONE (13:00)
[2018-01-03 13:13] LABS: CALCIUM 8.8 mg/dl (8.5-10.1); CREATININE 1.13 mg/dl (0.60-1.20); POTASSIUM 3.7 mmol/L (3.5-5.1)
--- NOTE | 2018-01-03 13:15 | Anesthesiology Progress Note ---
Anesthesia Post Op Note Date & Time Jan 03, 2018 at 13:14 Vital Signs Pain Intensity: 4 Vital Signs Past 12 Hours Date Time Temp Pulse Resp B/P (MAP) Pulse Ox O2 Delivery O2 Flow Rate FiO2 01/03/18 13:09 36.1 100 Nasal Cannula 2 01/03/18 13:04 53 16 100 Nasal Cannula 2.0 01/03/18 13:01 135/70 01/03/18 12:58 53 16 01/03/18 12:58 52 16 100 01/03/18 12:56 130/88 01/03/18 12:53 52 16 97 01/03/18 12:53 54 16 01/03/18 12:51 140/69 01/03/18 12:48 53 16 01/03/18 12:48 51 16 100 01/03/18 12:47 53 14 01/03/18 12:47 53 14 99 01/03/18 12:46 131/75 01/03/18 12:42 65 16 141/78 100 01/03/18 12:42 65 16 01/03/18 12:37 52 13 01/03/18 12:37 53 13 100 01/03/18 12:36 144/69 01/03/18 12:32 54 12 100 01/03/18 12:32 53 12 01/03/18 12:31 156/80 01/03/18 12:27 53 12 100 01/03/18 12:27 52 12 01/03/18 12:26 144/88 01/03/18 12:25 62 17 01/03/18 12:25 63 17 99 01/03/18 12:21 148/79 01/03/18 12:20 65 20 99 01/03/18 12:20 65 20 01/03/18 12:15 66 16 162/92 98 01/03/18 12:15 66 16 01/03/18 12:15 36.7 62 18 163/92 100 Oxymask 10 01/03/18 09:00 36.8 73 18 143/86 (105) 97 Room Air Notes Mental Status: alert / awake / arousable, participated in evaluation Pt Amnestic to Procedure: Yes Nausea / Vomiting: adequately controlled Pain: adequately controlled Airway Patency, RR, SpO2: stable & adequate BP & HR: stable & adequate Hydration State: stable & adequate Anesthetic Complications: no major complications apparent
[2018-01-03] MEDS: LACTATED RINGER'S 1000ML 1,000 ML IV SCH ×3 (13:40→21:51)
--- NOTE | 2018-01-03 13:56 | [facility] Operative Report ---
Operative Report Operative Date Jan 03, 2018. Pre-Operative Diagnosis Left renal cyst Post-Operative Diagnosis Left renal cyst Procedure(s) Performed Left laparoscopic renal cyst decortication Surgeon Dr. Oliver Hou MD Quality Assurance Lab Technician Surgeon(s) MAIK Esquivel Estimated Blood Loss 5ml Specimens A. Left renal cyst Anesthesia Type General Complication(s) none Disposition yes Recovery Room / PACU Description of Procedure Patient was identified in the preoperative holding area, appropriate informed consents reviewed and completed and she was transported to the operating suite. Upon arrival she received appropriate preoperative antibiotics in the form of Ancef. Adequate general anesthesia was achieved, she is placed in a right-side- down left side up lateral decubitus position where she was positioned, padded and braced in standard lazy lateral fashion with the bed flexed. Following appropriate sterile prep and drape, I began the case by passing a Veress needle under the costal margin in the left upper quadrant. Insufflated the abdomen to 15 mmHg for marking 3 potential port sites were 5 mm ports. The first port was located approximately 2 fingerbreadths below the costal margin along the lateral border of the rectus muscle, the second port was 8 cm inferior to this and the third port was approximately 4 cm inferior and 4 cm lateral to the second port. I began by placing the middle of those ports utilizing 5 mm Visiport and 5 mm 0 lens. Inspection of the abdomen after entry revealed mild adhesions on the anterior surface of the abdominal wall near the upper planned port site, I was able to lyse these adhesions without difficulty using the harmonic scalpel. The other port sites were free of adhesions and healthy. After completely clearing the abdominal wall of the adhesions, the final port was placed. Of note, the size of the cyst is already medialize the colon, therefore had to simply mobilize the spleen further cephalad by dissecting between the kidney and the spleen, that I had to split Gerota's fascia to expose the underlying renal parenchyma as well as cyst surface. I was able to accomplish this utilizing a grasper and Harmonic scalpel. After entirely exposing the surface of the cyst, I incised it utilizing the harmonic scalpel and drained it with a suction. Fluid within the cyst was clear, inspection of the inner aspect of the cyst revealed no masses or other lesions of concern. The now collapsed and redundant cyst wall was excised adjacent to its junction with her healthy appearing renal parenchyma utilizing the harmonic scalpel. After further inspection and confirmation of hemostasis, I placed some of the perirenal fat into the defect. At that time there was excellent hemostasis and no other concerns, I was able to withdraw the cyst wall will simultaneously withdrawing the lowest 5 mm port. The cyst wall was passed off the table as a specimen. The other ports were then withdrawn. Fascia was reapproximated with a single simple interrupted 0 Vicryl followed by closure of the skin with 4-0 Monocryl. All incisions were infiltrated with quarter percent Marcaine. They were closed with Dermabond as a dressing. Of note, Tammi Gonzalez was with me as an educational assistant teacher from incision to closure as well as all important portions of the case. I attest to the content of the Intraoperative Record and any orders documented therein. Any exceptions are noted below.
[2018-01-03] MEDS: CEFAZOLIN IV 1,000 MG in SYRINGE 0 ML IV SCH (18:43)
[2018-01-03] MEDS: HEPARIN SOD 5000 UNIT/0.5 ML CARP SQ SCH (20:34)
[2018-01-03] MEDS: ACETAMINOPHEN/CODEINE 300/30MG TAB PO PRN (20:36)
[2018-01-03] MEDS: DOCUSATE SODIUM 100 MG CAP PO SCH (20:37)
[2018-01-04 03:05] VITALS: BP 107/59; PULSE 71; TEMP 37; O2SAT 96
[2018-01-04] MEDS: CEFAZOLIN IV 1,000 MG in SYRINGE 0 ML IV SCH (03:34)
[2018-01-04] MEDS: ACETAMINOPHEN/CODEINE 300/30MG TAB PO PRN (03:35)
[2018-01-04] MEDS: LACTATED RINGER'S 1000ML 1,000 ML IV SCH ×2 (03:42→09:40)
[2018-01-04] MEDS ORDERED: LEVOTHYROXINE 100 MCG TAB PO SCH (06:00)
[2018-01-04 06:30] LABS: HEMATOCRIT 40.6 % (37-47); HEMOGLOBIN 13.3 g/dL (12.0-16.0); IG# 0.02 K/uL (0.00-0.02); LYMPH ABS # 0.42 K/uL (1.2-3.4); MEAN CELL VOLUME 89.2 fL (80-100); MEAN CORPUSCULAR HEMOGLOBIN 29.2 pg (25-34); MEAN CORPUSCULAR HGB CONC 32.8 g/dl (32-36); MEAN PLATELET VOLUME 12.4 fL (7.4-10.4); MONO % 3.2 %; MONO ABS # 0.27 K/uL (0.11-0.59); NEUT % 91.6 %; NEUT ABS # 7.63 K/uL (1.4-6.5); PLATELET COUNT 182 K/uL (130-400); RED CELL DISTRIBUTION WIDTH CV 12.7 % (11.5-14.5); RED CELL DISTRIBUTION WIDTH SD 40.8 fL (36.4-46.3); WHITE BLOOD COUNT 8.34 K/uL (4.8-10.8)
[2018-01-04 07:06] LABS: CALCIUM 8.5 mg/dl (8.5-10.1); CREATININE 1.03 mg/dl (0.60-1.20); POTASSIUM 3.8 mmol/L (3.5-5.1)
[2018-01-04 08:03] VITALS: BP 127/75; PULSE 85; TEMP 37; O2SAT 96
--- NOTE | 2018-01-04 08:11 | Anesthesiology Progress Note ---
Anesthesia Post Op Note Date & Time Jan 04, 2018 at 08:10 Vital Signs Vital Signs Past 12 Hours Date Time Temp Pulse Resp B/P (MAP) Pulse Ox O2 Delivery O2 Flow Rate FiO2 01/04/18 08:03 37.0 85 16 127/75 (92) 96 Room Air 01/04/18 03:05 37.0 71 16 107/59 (75) 96 Room Air 01/03/18 22:48 36.8 61 16 113/63 (80) 96 Room Air Notes Mental Status: alert / awake / arousable, participated in evaluation Pt Amnestic to Procedure: Yes Nausea / Vomiting: adequately controlled Pain: adequately controlled Airway Patency, RR, SpO2: stable & adequate BP & HR: stable & adequate Hydration State: stable & adequate Anesthetic Complications: no major complications apparent
[2018-01-04] MEDS: HEPARIN SOD 5000 UNIT/0.5 ML CARP SQ SCH (09:00)
[2018-01-04] MEDS ORDERED: CETIRIZINE HCL 10 MG TAB PO SCH (09:00)
[2018-01-04] MEDS ORDERED: PANTOprazole SOD 40 MG TAB PO SCH (09:00)
--- NOTE | 2018-01-04 09:08 | Progress Note ---
Subjective Date of Service: Jan 04, 2018. Subjective Pt evaluation today including: conversation w/ patient, physical exam Voiding: no voiding problems Doing exceptionally well Reports that her preoperative pain has been entirely relieved Ambulating and moving around without difficulty Tolerating her diet Problem List Medical Problems: (1) Precordial chest pain Status: Acute (2) Renal cyst, left Status: Acute (3) Right knee pain Status: Acute Review of Systems Constitutional: No see HPI, No fever, No chills, No sweats, No weight loss, No weakness, No fatigue, No problem reported Abdomen: No see HPI, No pain, No nausea, No vomiting, No diarrhea, No constipation, No GI bleeding, No problem reported Objective Vital Signs Date Time Temp Pulse Resp B/P (MAP) Pulse Ox O2 Delivery O2 Flow Rate FiO2 01/04/18 08:03 37.0 85 16 127/75 (92) 96 Room Air 01/04/18 03:05 37.0 71 16 107/59 (75) 96 Room Air 01/03/18 22:48 36.8 61 16 113/63 (80) 96 Room Air 01/03/18 19:30 Room Air 01/03/18 19:04 36.4 63 17 122/77 (92) 95 Room Air 01/03/18 16:44 36.7 90 16 101/65 (77) 98 Nasal Cannula 2.0 01/03/18 15:29 36.4 58 16 115/65 (82) 97 Nasal Cannula 2.0 01/03/18 15:15 Nasal Cannula 1.0 01/03/18 14:29 58 16 121/77 (92) 98 2.0 01/03/18 13:58 57 16 122/77 (92) 99 2.0 01/03/18 13:30 Nasal Cannula 01/03/18 13:30 36.4 62 14 113/73 (86) 99 Nasal Cannula 2.0 01/03/18 13:30 99 Nasal Cannula 2.0 01/03/18 13:16 120/76 01/03/18 13:12 54 99 01/03/18 13:12 53 01/03/18 13:11 110/69 01/03/18 13:09 36.1 100 Nasal Cannula 2 01/03/18 13:07 57 17 01/03/18 13:07 55 17 100 01/03/18 13:06 122/70 01/03/18 13:04 53 16 100 Nasal Cannula 2.0 01/03/18 13:02 52 16 01/03/18 13:02 57 16 100 01/03/18 13:01 135/70 01/03/18 12:58 53 16 01/03/18 12:58 52 16 100 01/03/18 12:56 130/88 01/03/18 12:53 52 16 97 01/03/18 12:53 54 16 01/03/18 12:51 140/69 01/03/18 12:48 53 16 01/03/18 12:48 51 16 100 01/03/18 12:47 53 14 01/03/18 12:47 53 14 99 01/03/18 12:46 131/75 01/03/18 12:42 65 16 141/78 100 01/03/18 12:42 65 16 01/03/18 12:37 52 13 01/03/18 12:37 53 13 100 01/03/18 12:36 144/69 01/03/18 12:32 54 12 100 01/03/18 12:32 53 12 01/03/18 12:31 156/80 01/03/18 12:27 53 12 100 01/03/18 12:27 52 12 01/03/18 12:26 144/88 01/03/18 12:25 62 17 01/03/18 12:25 63 17 99 01/03/18 12:21 148/79 01/03/18 12:20 65 20 99 01/03/18 12:20 65 20 01/03/18 12:15 66 16 162/92 98 01/03/18 12:15 66 16 01/03/18 12:15 36.7 62 18 163/92 100 Oxymask 10 Physical Exam Eyes: normal inspection ENT: hearing grossly normal Respiratory/Chest: no respiratory distress, no accessory muscle use Cardiovascular: no edema Abdomen: soft (Incisions appropriate) Laboratory Results Last 24 Hours Test 01/03/18 12:20 01/03/18 14:05 01/04/18 05:35 White Blood Count 5.93 K/uL 8.34 K/uL Red Blood Count 4.80 M/uL 4.55 M/uL Hemoglobin 14.3 g/dL 13.3 g/dL Hematocrit 42.9 % 40.6 % Mean Corpuscular Volume 89.4 fL 89.2 fL Mean Corpuscular Hemoglobin 29.8 pg 29.2 pg Mean Corpuscular Hemoglobin Concent 33.3 g/dl 32.8 g/dl Platelet Count 172 K/uL 182 K/uL Mean Platelet Volume 11.6 fL 12.4 fL Neutrophils (%) (Auto) 67.4 % 91.6 % Lymphocytes (%) (Auto) 24.5 % 5.0 % Monocytes (%) (Auto) 5.4 % 3.2 % Eosinophils (%) (Auto) 2.0 % 0.0 % Basophils (%) (Auto) 0.5 % 0.0 % Neutrophils # (Auto) 4.00 K/uL 7.63 K/uL Lymphocytes # (Auto) 1.45 K/uL 0.42 K/uL Monocytes # (Auto) 0.32 K/uL 0.27 K/uL Eosinophils # (Auto) 0.12 K/uL 0.00 K/uL Basophils # (Auto) 0.03 K/uL 0.00 K/uL RDW Standard Deviation 40.8 fL 40.8 fL RDW Coefficient of Variation 12.6 % 12.7 % Immature Granulocyte % (Auto) 0.2 % 0.2 % Immature Granulocyte # (Auto) 0.01 K/uL 0.02 K/uL Sodium Level 141 mmol/L 139 mmol/L Potassium Level 3.7 mmol/L 3.8 mmol/L Chloride Level 107 mmol/L 107 mmol/L Carbon Dioxide Level 26 mmol/L 24 mmol/L Anion Gap 7.0 mmol/L 8.0 mmol/L Blood Urea Nitrogen 20 mg/dl 13 mg/dl Creatinine 1.13 mg/dl 1.03 mg/dl Est Creatinine Clear Calc Drug Dose 48.1 ml/min 52.8 ml/min Estimated GFR () 61.2 68.4 Estimated GFR (Non- 52.8 59.0 BUN/Creatinine Ratio 17.3 12.2 Random Glucose 119 mg/dl 122 mg/dl Calcium Level 8.8 mg/dl 8.5 mg/dl Prothrombin Time 10.7 SECONDS Prothromb Time International Ratio 1.0 Assessment and Plan Postoperative day #1 status post laparoscopic left renal cyst decortication Doing extremely well Preoperative pain has been relieved entirely She is extremely happy with her current status Labs appropriate Discharge home
[2018-01-04] MEDS: DOCUSATE SODIUM 100 MG CAP PO SCH (10:05)
[2018-01-04 10:41] VITALS: BP 127/75; PULSE 85; TEMP 37; O2SAT 96
[2018-01-04] MEDS ORDERED: ACET300T3 PO (10:42)
[2018-01-04] MEDS ORDERED: DOCU-94 PO (10:42)
--- NOTE | 2018-01-04 10:46 | Discharge Instructions ---
Discharge Instructions Date of Service Jan 04, 2018. Admission Reason for Admission: Renal Cyst Discharge Discharge Diagnosis / Problem: Renal cyst Discharge Goals Goal(s): Improve disease control Activity Recommendations Activity Limitations: as noted below 1. Do not lift >15lbs x 6 weeks. 2. No heavy exercise x 6 weeks. You may engage in light activity such as walking and stairs as tolerated. 3. Do not drive x [address] while taking narcotics. 4. Follow-up as scheduled. Please call our office at [phone] if you need to reschedule for any reason. . . Current Hospital Diet Patient's current hospital diet: Clear Liquid Diet Discharge Diet Recommended Diet: Regular Diet Procedures Procedures Performed: Left laparoscopic renal cyst decortication Pending Studies Studies pending at discharge: yes List of pending studies: Pathology Medical Emergencies . Who to Call and When: Medical Emergencies: If at any time you feel your situation is an emergency, please call 911 immediately. . Non-Emergent Contact Non-Emergency issues call your: Urologist Contact Number: [phone] Call Non-Emergent contact if: temperature is above 101, your pain is not controlled, your pain is worsening, your pain is concerning you, wound has increased drainage, wound has increased redness, wound has increased pain, you have any medication questions . . "Provider Documentation" section prepared by Tammi Gonzalez. . [place] Drug Monitoring Program Search Results: patient reviewed within database, no issues identified
--- NOTE | 2018-01-09 10:03 | Discharge Summary ---
Discharge Summary Date of Service Jan 09, 2018. Admission Date/Reason Jan 03, 2018 at 12:11 Renal Cyst. Discharge Date/Disposition Jan 04, 2018 Home Diagnosis Principal Diagnosis: renal cyst Procedure(s) Performed laparoscopic renal cyst decortication Medication Reconciliation New Medications: Acetaminophen/Codeine (Tylenol W/Codeine #3) 300 Mg/30 Mg Tab 1 TAB PO Q6 PRN for Pain, #20 TAB Docusate Sodium (Colace) 100 Mg Cap 1 CAP PO BID for Constipation for 30 Days, #60 CAP 2 Refills Continued Medications: Albuterol Sulfate (Proair Respiclick) 108 Mcg/Act Aer 1 PUFF INH BID PRN for SOB/Wheezing Calcium Carbonate (Tums) 500 Mg Chew 1 DOSE PO QD PRN for Heartburn Cetirizine (Zyrtec) 10 Mg Tab 10 MG PO QAM, TAB Fluticasone Prop/Salmeterol (Advair Diskus 500/50 60 Dose) 1 Ea Aerp 1 PUFFS INH BID PRN for SOB/Wheezing for 30 Days, #1 INHALER 5 Refills Levothyroxine Sodium (Synthroid) 100 Mcg Tab 100 MCG PO QAM, TAB Pantoprazole (Protonix) 40 Mg Tab 40 MG PO QAM, #30 TAB Discontinued Medications: Ibuprofen Tab (Advil) 200 Mg Tab 400 MG PO QD PRN for Pain, TAB Admission Physical Exam As per Admitting History & Physical. Hospital Course Admitted for lap renal cyst decortication - details of the procedure as dictated previously, but in summary, she tolerated the procedure extremely well. Progressed appropriately overnight and was discharged in stable condition on the morning of POD#1. Discharge Instructions Please refer to the electronic Patient Visit Report (Discharge Instructions) for additional information.
== END 2018-01-04 11:00 | disposition home or self-care (01) | DRG 661 ==
LOC: C.ACU 08:33 → C.MSW 12:11 → ENRESERV 12:48
PROVIDERS: ADMIT Urology; ATTEND Urology
PROC: 0TC14ZZ Extirpation of Matter from Left Kidney, Percutaneous Endoscopic Approach (ICD-10-PCS; principal; 2018-01-03 10:30)
DX: N28.1 Cyst of kidney, acquired (principal); J45.909 Unspecified asthma, uncomplicated; K21.9 Gastro-esophageal reflux disease without esophagitis; E03.9 Hypothyroidism, unspecified; Z79.899 Other long term (current) drug therapy; Z88.1 Allergy status to other antibiotic agents; Z88.2 Allergy status to sulfonamides; Z82.5 Family history of asthma and other chronic lower respiratory diseases; Z82.49 Family history of ischemic heart disease and other diseases of the circulatory system; Z83.3 Family history of diabetes mellitus